=== PATIENT | female | born 1995 | race Caucasian/White ===

== ENCOUNTER 2020-10-07 07:46 | Inpatient (IN) | payer OTHER ==
[2020-10-07] MEDS ORDERED: RINGERS SOLUTION,LACTATED 1,000 ML IV PRN (09:12)
[2020-10-07 09:45] LABS: ABSOLUTE LYMPHOCYTES (AUTO) 1.4 10^3/uL (0.5-4.7); ABSOLUTE MONOCYTES (AUTO) 0.5 10^3/uL (0.1-1.4); ABSOLUTE NEUT (AUTO) 6.8 10^3/uL (1.7-8.2); BASOPHILS % (AUTO) 0.2 % (0-2); EOSINOPHILS % (AUTO) 0.4 % (0-6); HEMATOCRIT 36.5 % (36.0-47.0); HEMOGLOBIN 12.7 g/dL (12.0-15.5); LYMPHOCYTES % (AUTO) 15.6 % (13-45); MEAN CORPUSCULAR HEMOGLOBIN 34.1 pg (27.0-33.4); MEAN CORPUSCULAR HGB CONC 34.9 g/dL (32.0-36.0); MEAN CORPUSCULAR VOLUME 98 fl (80-97); MONOCYTES % (AUTO) 5.6 % (3-13); PLATELET COUNT 169 10^3/uL (150-450); RED BLOOD COUNT 3.73 10^6/uL (3.72-5.28); RED CELL DISTRIBUTION WIDTH 12.8 % (11.5-14.0); SEGMENTED NEUTROPHILS % (AUTO) 78.2 % (42-78); TOTAL CELLS COUNTED % (AUTO) 100 %; WHITE BLOOD COUNT 8.8 10^3/uL (4.0-10.5)
--- NOTE | 2020-10-07 11:50 | Admission Physical ---
Datetime Report Generated by CPN: 10/07/2020 11:49 CURRENT ADMISSION Hx Assessment: The History has been Reviewed and is Current Chief Complaint: Uterine Contractions; Suspected Ruptured Membranes Chief Complaint Other: Reports SROM this am of clear fluid. Contractions started on way to hospital but not too strong yet Admit Impression : Term, Intrauterine ; Active Labor; Ruptured Membranes Admit Plan: Admit to Unit; Initiate Labor Protocol; Initiate Labor Augmentation Protocol ALLERGIES Medication Allergies: No Medication Allergies: No Known Allergies (10/07/2020) Latex: No Latex Allergies OBSTETRICAL HISTORY EDC: 10/20/2020 00:00 : 1 Para: 0 Term: 0 : 0 SAB: 0 IAB: 0 Ectopic: 0 Livin Cesareans: 0 VBACs: 0 Multiple Births: 0 Gestational Diabetes: No Rh Sensitization: No Incompetent Cervix: No ARMANI: No Infertility: No ART Treatment: No Uterine Anomaly: No IUGR: No Hx Previous C/S: No Macrosomia: No Hx Loss/Stillborn: No PIH: No Hx : No Placenta Previa/Abruption: No Depression/PP Depression: No PTL/PROM: No Post Hemorrhage: No Obstetrical History Comments: G1- [place] G HTN SEE RECORDS Alcohol: No Marijuana : No Cocaine: No Other Illicit Drugs: No Cigarettes: Former Smoker. [id number] MEDICAL HISTORY Diabetes: No Blood Transfusion: No Pulmonary Disease (Asthma, TB): No Breast Disease: No Hypertension: No Embedded Systems Designer Surgery: No Heart Disease: No Hosp/Surgery: No Autoimmune Disorder: No Anesthetic Complications: No Kidney Disease: No Abnormal Pap Smear: No Neuro/Epilepsy: No Psychiatric Disorders: No Other Medical Diseases: No Hepatitis/Liver Disease: No Significant Family History: No Varicosities/Phlebitis: No Trauma/Violence : No Thyroid Dysfunction: No Medical History Comments: [place] teeth removed 2019 INFECTIOUS HISTORY Gonorrhea: No Genital Herpes: No Chlamydia: No Tuberculosis: No Syphilis: No Hepatitis: No HIV/AIDS Exposure: No Rash or Viral Illness: No HPV: No PHYSICAL EXAM General: Normal HEENT: Normal Neurologic: Normal Thyroid: Normal Heart: Normal Lungs: Normal Breast: Normal Back: Normal Abdomen: Normal Genitourinary Exam: Normal Extremities: Normal DTRs: Normal Pelvic Type: Adequate Vital Signs: Reviewed VAGINAL EXAM Dilatation: 1 Effacement: 75 Station: -3 Contraction Comments: Irregular Q 2-6 hours. MEMBRANES Pooling: Positive Membranes: Ruptured Amniotic Fluid Color: Clear FETUS A EGA: 38.1 Monitoring: External US FHR- Baseline: 130 Variability: Moderate 6-25bpm Accelerations: 15X15 Decelerations: None FHR Category: Category I Presentation: Vertex Admit Comment: 25 yo G1 at 38.1 wks EGA with SROM -active labor_ -Admit to LDR -NPO and IVFs: LR at 125 cc/hr after 1 liter of LR -CEFM and toco -GBS negative -IF contractions begin to space out, will begin pitocin low dose protocol at 2 milliunits and hour and increase by 2 every 30 minutes -anticipate PLANS FOR LABOR AND DELIVERY Labor and Delivery: None Pain Management: Epidural Feeding Preference: Breast Benefit of Breast Feed Discussed: Yes Circumcision: N/A INFORMED CONSENT Informed Consent Obtained: Vaginal Delivery; Section Delivery; Vacuum/Forceps Assist; Risks, Benefits and Alternatives Discussed Signature: with User ID: Fara : with User ID: Fara
[2020-10-07] MEDS ORDERED: OXYTOCIN/0.9 % SODIUM CHLORIDE 30 UNIT/500 ML RTUINJ IV PRN (13:40)
[2020-10-07 13:50] LABS: APPEARANCE,URINE CLEAR; BILIRUBIN,URINE NEGATIVE (NEGATIVE); COLOR,URINE STRAW; GLUCOSE, URINE NEGATIVE (NEGATIVE); KETONES,URINE NEGATIVE (NEGATIVE); LEUKOCYTE ESTERASE,URINE NEGATIVE (NEGATIVE); NITRITE,URINE NEGATIVE (NEGATIVE); PROTEIN,URINE NEGATIVE (NEGATIVE); URINE SPECIFIC GRAVITY 1.004; UROBILINOGEN,URINE NEGATIVE mg/dL (<2.0)
[2020-10-07] MEDS ORDERED: OXYTOCIN 10 UNIT/ML VIAL ONE (13:50)
[2020-10-07] MEDS ORDERED: MISOPROSTOL 0.2 MG TABLET ONE (13:50)
[2020-10-07] MEDS ORDERED: LIDOCAINE 1% INJ-PF (10 MG/ML) 30 ML SDV ONE (13:51)
[2020-10-07] MEDS ORDERED: OXYTOCIN/0.9 % SODIUM CHLORIDE 30 UNIT/500 ML RTUINJ ONE (13:51)
[2020-10-07 14:26] LABS: URINE AMPHETAMINES SCREEN NEGATIVE; URINE BARBITURATES SCREEN NEGATIVE; URINE BENZODIAZEPINES SCREEN NEGATIVE; URINE COCAINE SCREEN NEGATIVE; URINE MARIJUANA (THC) SCREEN NEGATIVE; URINE METHADONE SCREEN NEGATIVE; URINE PHENCYCLIDINE SCREEN NEGATIVE
[2020-10-07] MEDS ORDERED: PROMETHAZINE HCL INJ 25 MG/1 ML VIAL ONE (18:08)
[2020-10-07] MEDS ORDERED: NALBUPHINE HCL INJ 10 MG/1 ML AMPULE ONE (18:08)
[2020-10-07] MEDS ORDERED: PROMETHAZINE HCL INJ 25 MG/1 ML VIAL IV ONE (18:30)
[2020-10-07] MEDS ORDERED: NALBUPHINE HCL INJ 10 MG/1 ML AMPULE INJ ONE (18:30)
--- NOTE | 2020-10-07 19:21 | Warning Signs in Babies ---
VOD Warning Signs Datetime Report Generated by [facility]: 10/07/2020 19:21 VOD#608 -Warning Signs in Babies: Viewed with Parent(s)/Family (10/07/2020 07:47:Tomas Mars RN)
--- NOTE | 2020-10-07 19:22 | Warning Signs in Babies ---
VOD Warning Signs Datetime Report Generated by CPN: 10/07/2020 19:22 VOD#608 -Warning Signs in Babies: Viewed with Parent(s)/Family (10/07/2020 19:21:Tomas Mars RN)
[2020-10-07] MEDS ORDERED: EPHEDRINE SULFATE INJ 50 MG/1 ML AMPULE ONE (21:19)
[2020-10-07] MEDS ORDERED: FENTANYL/BUPIVACAINE/NS/PF 300 MCG/150 ML RTUINJ EPI ONE (21:20)
[2020-10-07] MEDS ORDERED: ROPIVACAINE HCL 0.2% INJ/PF (2 MG/ML) 20 ML SDV ONE (21:20)
[2020-10-08] MEDS ORDERED: GENTAMICIN SULFATE INJ 80 MG/2 ML VIAL IV SCH ×2 (00:30→11:00)
[2020-10-08] MEDS ORDERED: AMPICILLIN SOD INJ 2 GM VIAL ONE ×3 (01:11→12:20)
[2020-10-08] MEDS: AMPICILLIN SOD INJ 2 GM VIAL IV SCH ×3 (01:17→12:29)
[2020-10-08] MEDS ORDERED: PSEUDOEPHEDRINE HCL 30 MG TABLET PO PRN (01:37)
[2020-10-08] MEDS ORDERED: MAGNESIUM HYDROXIDE SUSP 30 ML UDCUP PO PRN (01:37)
[2020-10-08] MEDS ORDERED: ACETAMINOPHEN 650 MG SUPP.RECT PR PRN (01:37)
[2020-10-08] MEDS ORDERED: ZOLPIDEM TARTRATE 5 MG TABLET PO PRN (01:37)
[2020-10-08] MEDS ORDERED: PROMETHAZINE HCL 25 MG SUPP.RECT PR PRN (01:37)
[2020-10-08] MEDS ORDERED: ACETAMINOPHEN 325 MG TABLET PO PRN (01:37)
[2020-10-08] MEDS ORDERED: PROMETHAZINE HCL INJ 25 MG/1 ML VIAL IV PRN (01:37)
[2020-10-08] MEDS ORDERED: DIPHENHYDRAMINE HCL 25 MG CAPSULE PO PRN (01:37)
[2020-10-08] MEDS ORDERED: DIBUCAINE 1% OINTMENT 28 GM TP PRN (01:37)
[2020-10-08] MEDS ORDERED: ACETAMINOPHEN WITH CODEINE #3 TABLET PO PRN ×2 (01:37)
[2020-10-08] MEDS ORDERED: DIPH/PERTUSS(ACELL)/TETANUS VAC/PF 0.5 ML SYR (>=10YO) IM PRN (01:37)
[2020-10-08] MEDS ORDERED: OXYTOCIN/0.9 % SODIUM CHLORIDE 30 UNIT/500 ML RTUINJ IV PRN (01:37)
[2020-10-08] MEDS ORDERED: GLYCERIN/WITCH HAZEL LEAF 1 EACH MED..WIPE TP PRN (01:37)
[2020-10-08] MEDS ORDERED: MEASLES,MUMPS&RUBELLA VACC/PF 0.5 ML VIAL SUBCUT PRN (01:37)
[2020-10-08] MEDS ORDERED: BENZOCAINE/MENTHOL AEROSOL SPRAY 56 ML TOP PRN (01:37)
[2020-10-08] MEDS ORDERED: NA PHOS,M-B/NA PHOS,DI-BA (ADULT) 133 ML ENEMA PR PRN (01:37)
[2020-10-08] MEDS ORDERED: PROMETHAZINE HCL 25 MG TABLET PO PRN (01:37)
[2020-10-08] MEDS ORDERED: GENTAMICIN SULFATE INJ 80 MG/2 ML VIAL ONE ×2 (01:57→13:30)
[2020-10-08] MEDS ORDERED: IBUPROFEN 800 MG TABLET ONE (03:25)
[2020-10-08] MEDS: IBUPROFEN 800 MG TABLET PO SCH ×4 (03:26→22:37)
--- NOTE | 2020-10-08 04:29 | Delivery Summary ---
Del Sum A-C Datetime Report Generated by CPN: 10/08/2020 04:28 DELIVERY PERSONNEL DELIVERY PERSONNEL: [id number] Delivery Doctor:: Rachel Donato MD HOT REPAIRMAN:: Bang Uriel, HOT REPAIRMAN Labor and Delivery Nurse:: Tomas Mars RN Nursery Nurse:: Liana Bay RN Nursery Nurse:: JASON Archer Casting Machine Service Operator/PATIENT ACCESS COORDINATOR: Shireen Navarrete, CONSULTING DATABASE ADMINISTRATOR MATERNAL INFORMATION Delivery Anesthesia: Epidural Medications After Delivery: Pitocin 30 Units in 500ml NS/D5W Delivery QBL: 100 Maternal Complications: None Provider Comments: Called to patients room as she was complete and +3 after pushing for about one hour. Delivered viable female infant. After the head, the shoulders and rest of the body followed easily. Baby was vigorous so cord clamping delayed for 30 seconds. Afterwards, cord cut and clamped . placed skin to skin with Mother. Both stable. Left hand noted to have 3 fingers and thumb with left little finger dangling by small band of skin. It feels like there is bone within the little finger. LABOR SUMMARY EDC: 10/20/2020 00:00 No. Babies in Womb: 1 Attempted: No Labor Anesthesia: Epidural LABOR INFORMATION Reason for Induction: Not Applicable Onset of Labor: 10/07/2020 06:20 Complete Dilatation: 10/08/2020 00:03 Oxytocin: Augmentation Group B Beta Strep: negative Antibiotics # of Doses: 0 Name of Antibiotic Given: N/A Steroids Given: None Reason Steroids Not Administered: Not Applicable MEMBRANES Membranes Rupture Method: Spontaneous Rupture of Membranes: 10/07/2020 06:20 Length of Rupture (hr): 18.93 Amniotic Fluid Color: Clear Amniotic Fluid Amount: Small Amniotic Fluid Odor: Normal STAGES OF LABOR Stage 1 hr: 17 Stage 1 min: 43 Stage 2 hr: 1 Stage 2 min: 13 Stage 3 hr: 0 Stage 3 min: 13 Total Time in Labor hr: 19 Total Time in Labor min: 9 VAGINAL DELIVERY Episiotomy: None Laceration #1: Perineal Laceration Extension #1: Second Degree Laceration Repair: Yes Laceration Repair Note: Repaired with 2-0 chromic in a layered fashion Sponge Count Correct: Yes Sharps Count Correct: Yes CSECTION DELIVERY Primary Indication: N/A Secondary Indication: N/A CSection Incidence: N/A Labor: N/A Elective: N/A CSection Incision: N/A BABY A INFORMATION Infant Delivery Date/Time: 10/08/2020 01:16 Method of Delivery: Vaginal Nurse Controlled Delivery: No Born in Route : No : N/A Forceps: N/A Vacuum Extraction: N/A Shoulder Dystocia : Yes PRESENTATION/POSITION BABY A Presentation: Cephalic Cephalic Presentation: Vertex Vertex Position: Left Occipital Anterior Breech Presentation: N/A PLACENTA INFORMATION BABY A Placenta Delivery Time : 10/08/2020 01:29 Placenta Method of Delivery: Spontaneous Placenta Status: Delivered SCORES BABY A Heart Rate 1 min: >100 bpm Resp Effort 1 min: Good Cry Reflex Irritability 1 min: Cough or Sneeze or Pulls Away Muscle Tone 1 min: Active Motion Color 1 min: Body [place], Extremities Blue Resuscitation Effort 1 min: Tactile Stimulation SCORE 1 MIN: 9 Heart Rate 5 min: >100 bpm Resp Effort 5 min: Good Cry Reflex Irritability 5 min: Cough or Sneeze or Pulls Away Muscle Tone 5 min: Active Motion Color 5 min: Body [place], Extremities Blue SCORE 5 MIN: 9 INFANT INFORMATION BABY A Gestational Age at Delivery: 38.2 Gestational Status: Early Term- 37- 38.6 Weeks Outcome : Liveborn Infant Condition : Stable Infant Sex: Female IDENTIFICATION BABY A Infant Verification Date/Time: 10/08/2020 02:02 ID Band Number: [id number] Mother's Name Verified: Yes Infant RN Verifying : rn orlinann Additional Verifying Personnel: rn lonnie WEIGHT/LENGTH BABY A Birthweight (gm): 3660 Weight (lb): 8 Weight (oz): 1 Length (in): 20.50 Length (cm): 52.07 CORD INFORMATION BABY A No. Cord Vessels: 3 Nuchal Cord : N/A Cord Blood Taken: Yes-For Eval (Mom's Blood Type - or O+) Infant Suction: Mouth ASSESSMENT BABY A Infant Complications: None Physical Findings at Delivery: Missing Digit(s) Physical Findings- Other: left little finger is only attached by a small strip of skin. It feels like it has bone inside the actual digit. Respirations: Appears Normal Skin to Skin: Yes Middle [employer] Spanish Teacher/ALS Called : No Transferred To: Remains with Mother BABY B INFORMATION : N/A SIGNATURES Signature: with User ID: Fara : with User ID: Fara
--- NOTE | 2020-10-08 04:29 | Birth Certificate Data ---
Cert Data Datetime Report Generated by CPN: 10/08/2020 04:28 CERTIFICATE DATA Delivery Provider: Rachel Donato MD (10/07/2020 07:47:Rachel Donato MD) 47a. Care: Yes (10/07/2020 07:47:Lizett Dockery RN) 48a. Number of Prev Live Births: 0 (10/07/2020 07:47:Lizett Dockery RN) 48b. Now Livin (10/07/2020 07:47:Lizett Dockery RN) 48c. Live Births Now : 0 (10/07/2020 07:47:QS system process) 48e. Losses: 0 (10/07/2020 07:47:Lizett Dockery RN) RISK FACTORS IN THIS 49a. Diabetes: No (10/07/2020 07:47:Lizett Dockery RN) 49b. Hypertension: Yes (10/07/2020 07:47:Shruti Goldstein RN) Type of Hypertension: Gestational (PIH, Pre-eclampsia) (10/07/2020 07:47:Shruti Goldstein RN) 49c. Previous Births: 0 (10/07/2020 07:47:Shruti Goldstein RN) 49d. Stillborns: No (10/07/2020 07:47:Lizett Dockery RN) 49d. IUGR: No (10/07/2020 07:47:Lizett Dockery RN) 49e. Infertility Treatment: No (10/07/2020 07:47:Lizett Dockery RN) 49f. Previous Cesareans: 0 (10/07/2020 07:47:Shruti Goldstein RN) Mother's Height 50b. Height Inches: 71 (10/08/2020 03:46:QS system process) Mother's Weight 51b. Weight at Delivery (lbs): 211 (10/08/2020 03:46:QS system process) Infections Present/Treated 53a. Gonorrhea: No (10/07/2020 07:47:Lizett Dockery RN) Results this Hospital Visit : Negative (10/07/2020 07:47:Shruti Goldstein RN) 53b. Syphilis: No (10/07/2020 07:47:Lizett Dockery RN) 53c. Chlamydia: No (10/07/2020 07:47:Lizett Dockery RN) Results this Hospital Visit: Negative (10/07/2020 07:47:Shruti Goldstein RN) 53d. Hepatitis B: No (10/07/2020 07:47:Lizett Dockery RN) Results this Hospital Visit: Negative (10/07/2020 07:47:Lizett Dockery RN) 53e. Hepatitis C: Negative (10/07/2020 07:47:Shruti Goldstein RN) 53h. Mother Tested for HBsAG: Yes (10/07/2020 07:47:Shruti Goldstein RN) 53i. Date Tested: 04/06/2020 00:00 (10/07/2020 07:47:Shruti Goldstein RN) 53j. Test Result: Negative (10/07/2020 07:47:Lizett Dockery RN) Obstetric Procedures 54a, b, c. Obstetric Procedures: Ultrasound (10/07/2020 07:47:Shruti Goldstein, RN) Cigarette Smoking Cigarette Smoking: Former Smoker. [id number] (10/07/2020 07:47:Lizett Sales, RN) Onset of Labor 56a. PROM >12 Hrs: 18.93 (10/07/2020 09:30:QS system process) 56b. Precipitous Labor <3 Hrs: 19 (10/07/2020 09:30:QS system process) 56c. Prolonged Labor > 20 Hrs: 19 (10/07/2020 09:30:QS system process) 57a. Induction of Labor: Augmentation (10/07/2020 07:47:July Morales RN) 57c. Non-Vertex Presentation A: Vertex (10/07/2020 07:47:Rachel Donato MD) 57d. Steroids - Lung Mat: None (10/07/2020 07:47:July Morales RN) 57d. Steroids - Lung Mat: Not Applicable (10/07/2020 07:47:July Morales RN) 57g. Moderate/Heavy Meconium: Clear (10/07/2020 09:30:Shruti Goldstein RN) 57h. Intolerance of Labor: N/A (10/07/2020 07:47:Rachel Donato MD) : N/A (10/07/2020 07:47:July Morales RN) 57i. Epidural/Spinal Anesthesia: Epidural (10/07/2020 07:47:July Morales RN) Method of Delivery 58a. Forceps - Unsuccessful A: N/A (10/07/2020 07:47:July Morales RN) 58b. Vacuum - Unsuccessful A: N/A (10/07/2020 07:47:July Morales RN) 58c. Presentation at 58c. Presentation at - A : Vertex (10/07/2020 07:47:Rachel Donato MD) 58c. Presentation at - A : N/A (10/07/2020 07:47:July Morales RN) 58c. Presentation at - A : Cephalic (10/07/2020 17:33:Shruti Goldstein RN) Final Route and Method of Del 58d. Baby A Route/Delivery: Vaginal (10/08/2020 01:16:Tomas Mars RN) 58e. Trial of Labor Attempted: No (10/07/2020 07:47:July Morales RN) 58e. Trial of Labor Attempted A: N/A (10/07/2020 07:47:July Morales RN) 58e. Trial of Labor Attempted B: N/A (10/07/2020 07:47:July Kossmann, RN) Maternal Morbidity 59b. 3rd or 4th Degree Lacs: Perineal (10/07/2020 07:47:Rachel Donato, MD) Birthweight Baby A: 3660 (10/07/2020 07:47:Tomas Mars RN) 60a. Pounds : 8 (10/07/2020 07:47:QS system process) 60b. Ounces: 1 (10/07/2020 07:47:QS system process) 61. GA at Delivery Baby A: 38.2 (10/07/2020 07:47:July Morales RN) : Early Term- 37- 38.6 Weeks (10/07/2020 07:47:QS system process) 62a. 5 Minute Baby A: 9 (10/07/2020 07:47:QS system process)
--- NOTE | 2020-10-08 10:51 | PDOC PROGRESS REPORT ---
Subjective-OB Progress Note for:: 10/08/20 - Delivery Day, doing well, UOB, voiding, O+, , denies fever, chills, malaise Physical Exam (OB) Vital Signs: Temp Pulse Resp BP Pulse Ox 98 F 96 20 123/70 99 10/08/20 04:01 10/08/20 04:01 10/08/20 04:01 10/08/20 04:01 10/08/20 04:01 Intake & Output 10/07/20 10/08/20 10/09/20 06:59 06:59 06:59 Weight 95.5 kg - General General Appearance: Appears well In distress: None - Maternal Morbidity 59. Maternal Morbidity (serious complications experinced by the mother associated with labor and delivery: None of the above - Abdomen Fundal Description: Firm Fundal Height: u/u - u/2 - Respiratory Respiratory Status: No respiratory distress - Abdominal Distension: No distension - Genitourinary Genitourinary Note: voiding - Neurological Cognition: Normal Orientation: AAOx4 - Skin Skin Temperature: Warm Skin Moisture: Dry Objective-Diagnostic Laboratory: 10/07/20 09:30 10/07/20 07:54 Urine Color STRAW Urine Appearance CLEAR Urine pH 7.0 Ur Specific [place] 1.004 Urine Protein NEGATIVE Urine Glucose (UA) NEGATIVE Urine Ketones NEGATIVE Urine Blood NEGATIVE Urine Nitrite NEGATIVE Ur Leukocyte Esterase NEGATIVE Assessment and Plan(PN) - Assessment and Plan (1) (normal spontaneous vaginal delivery) Is this a current diagnosis for this admission?: Yes (2) Chorioamnionitis, delivered, current hospitalization Is this a current diagnosis for this admission?: Yes Plan:: Continue antibiotics x 24 hours, ambulation encouraged - Time Spent with Patient Time with patient: Less than 15 minutes Medications reviewed and adjusted accordingly: Yes - Disposition Anticipated Discharge Disposition: Home, Self Care Anticipated Discharge Timeframe: within 48 hours
[2020-10-08] MEDS: FAMOTIDINE 20 MG TABLET PO SCH ×2 (11:22→22:37)
[2020-10-08] MEDS: FERROUS SULFATE 325 MG TABLET PO SCH ×2 (11:22→18:47)
[2020-10-08] MEDS: DOCUSATE SODIUM 100 MG CAPSULE PO SCH ×2 (11:22→18:47)
[2020-10-08] MEDS: SENNOSIDES/DOCUSATE 8.6-50 MG 1 EACH TABLET PO SCH (11:22)
[2020-10-08] MEDS: PRENATAL VITAMIN W DHA CAPSULE PO SCH (11:22)
[2020-10-08] MEDS: GENTAMICIN SULFATE 80 MG in DEXTROSE 5%-WATER 100 ML IV SCH ×2 (14:57→22:39)
[2020-10-08] MEDS: AMPICILLIN SODIUM 2 GM in NORMAL SALINE 100 ML IV SCH (18:50)
[2020-10-09] MEDS: AMPICILLIN SODIUM 2 GM in NORMAL SALINE 100 ML IV SCH (00:43)
[2020-10-09] MEDS: IBUPROFEN 800 MG TABLET PO SCH ×3 (05:59→21:22)
[2020-10-09 07:05] LABS: HEMATOCRIT 32.7 % (36.0-47.0); HEMOGLOBIN 11.2 g/dL (12.0-15.5); MEAN CORPUSCULAR HEMOGLOBIN 33.6 pg (27.0-33.4); MEAN CORPUSCULAR HGB CONC 34.1 g/dL (32.0-36.0); MEAN CORPUSCULAR VOLUME 99 fl (80-97); PLATELET COUNT 153 10^3/uL (150-450); RED BLOOD COUNT 3.32 10^6/uL (3.72-5.28); RED CELL DISTRIBUTION WIDTH 13.2 % (11.5-14.0); WHITE BLOOD COUNT 9.1 10^3/uL (4.0-10.5)
[2020-10-09] MEDS: PRENATAL VITAMIN W DHA CAPSULE PO SCH (09:43)
[2020-10-09] MEDS: FERROUS SULFATE 325 MG TABLET PO SCH ×2 (09:44→17:48)
[2020-10-09] MEDS: FAMOTIDINE 20 MG TABLET PO SCH ×2 (09:44→21:22)
[2020-10-09] MEDS: SENNOSIDES/DOCUSATE 8.6-50 MG 1 EACH TABLET PO SCH (09:44)
[2020-10-09] MEDS: DOCUSATE SODIUM 100 MG CAPSULE PO SCH ×2 (09:44→17:48)
--- NOTE | 2020-10-09 15:13 | PDOC PROGRESS REPORT ---
Subjective-OB Progress Note for:: 10/09/20 Subjective: reports bleeding slowing, pain controlled with current meds. denies needs Physical Exam (OB) Vital Signs: Temp Pulse Resp BP Pulse Ox 98.2 F 82 16 143/64 H 100 10/09/20 12:00 10/09/20 12:00 10/09/20 12:00 10/09/20 12:00 10/09/20 12:00 Intake & Output 10/08/20 10/09/20 10/10/20 06:59 06:59 06:59 Intake Total 100 400 Balance 100 400 Weight 95.5 kg - Maternal Morbidity 59. Maternal Morbidity (serious complications experinced by the mother associated with labor and delivery: None of the above - Abdomen Description: Soft Hernia Present: No Fundal Description: Firm, Midline Fundal Height: u/u - u/2 - Abdominal Distension: No distension Tenderness: Nontender - Extremities Lower extremities: Debi's sign - neg Calf: Normal, Nontender Objective-Diagnostic Laboratory: 10/09/20 06:51 10/09/20 06:51 WBC 9.1 RBC 3.32 L Hgb 11.2 L Hct 32.7 L MCV 99 H MCH 33.6 H MCHC 34.1 RDW 13.2 Plt Count 153 Assessment and Plan(PN) - Time Spent with Patient Time with patient: Less than 15 minutes - Disposition Anticipated Discharge Disposition: Home, Self Care Anticipated Discharge Timeframe: within 24 hours
[2020-10-10] MEDS: IBUPROFEN 800 MG TABLET PO SCH (05:11)
[2020-10-10] MEDS: FAMOTIDINE 20 MG TABLET PO SCH (09:48)
[2020-10-10] MEDS: SENNOSIDES/DOCUSATE 8.6-50 MG 1 EACH TABLET PO SCH (09:48)
[2020-10-10] MEDS: DOCUSATE SODIUM 100 MG CAPSULE PO SCH (09:48)
[2020-10-10] MEDS: PRENATAL VITAMIN W DHA CAPSULE PO SCH (09:48)
[2020-10-10] MEDS: FERROUS SULFATE 325 MG TABLET PO SCH (09:48)
--- NOTE | 2020-10-10 11:31 | PDOC DISCHARGE SUMMARY ---
Impression - Admit/DC Date/PCP Admission Date/Primary Care Provider: 10/07/20 08:54 Discharge Date: 10/10/20 - PP Day #2, doing well, denies fever, chills, malaise, s/p ABX for Chorio in labor. Fever precautions reviewed, O+ Rubella Immune, , - Discharge Diagnosis (1) (normal spontaneous vaginal delivery) Is this a current diagnosis for this admission?: Yes (2) Chorioamnionitis, delivered, current hospitalization Is this a current diagnosis for this admission?: Yes (3) Normal course Is this a current diagnosis for this admission?: Yes - Additional Information Resuscitation Status: Full Code Discharge Diet: Regular Discharge Activity: Balance Activity w/Rest, No tub bath Referrals: [facility] [Provider Group] Prescriptions: Ibuprofen [Motrin 800 mg Tablet] 800 mg PO Q8 #60 tablet Home Medications: Pnv 102/Iron/Folate 1/Dss/Dha [Vitafol Fe+ Docusate Combo Pck] 1 each PO DAILY 10/07/20 Ibuprofen [Motrin 800 mg Tablet] 800 mg PO Q8 #60 tablet 10/10/20 HPI Reason(s) for Admission: Onset of Labor Procedures: Management of Obstetric Complications Intrapartum Procedure(s): Spontaneous Vaginal Delivery Complication(s): Laceration-Vaginal, Pelvic Infection, Antibiotics Laceration-Degree: 2nd Hospital Course 59. Maternal Morbidity (serious complications experinced by the mother associated with labor and delivery: None of the above Results Laboratory Results: WBC 9.1 10^3/uL (4.0-10.5) 10/09/20 06:51 RBC 3.32 10^6/uL (3.72-5.28) L 10/09/20 06:51 Hgb 11.2 g/dL (12.0-15.5) L 10/09/20 06:51 Hct 32.7 % (36.0-47.0) L 10/09/20 06:51 MCV 99 fl (80-97) H 10/09/20 06:51 MCH 33.6 pg (27.0-33.4) H 10/09/20 06:51 MCHC 34.1 g/dL (32.0-36.0) 10/09/20 06:51 RDW 13.2 % (11.5-14.0) 10/09/20 06:51 Plt Count 153 10^3/uL (150-450) 10/09/20 06:51 Lymph % (Auto) 15.6 % (13-45) 10/07/20 09:30 [place] % (Auto) 5.6 % (3-13) 10/07/20 09:30 Eos % (Auto) 0.4 % (0-6) 10/07/20 09:30 Baso % (Auto) 0.2 % (0-2) 10/07/20 09:30 Absolute Neuts (auto) 6.8 10^3/uL (1.7-8.2) 10/07/20 09:30 Absolute Lymphs (auto) 1.4 10^3/uL (0.5-4.7) 10/07/20 09:30 Absolute Monos (auto) 0.5 10^3/uL (0.1-1.4) 10/07/20 09:30 Absolute Eos (auto) 0.0 10^3/uL (0.0-0.6) 10/07/20 09:30 Absolute Basos (auto) 0.0 10^3/uL (0.0-0.2) 10/07/20 09:30 Seg Neutrophils % 78.2 % (42-78) H 10/07/20 09:30 Urine Color STRAW 10/07/20 07:54 Urine Appearance CLEAR 10/07/20 07:54 Urine pH 7.0 (5.0-9.0) 10/07/20 07:54 Ur Specific [place] 1.004 10/07/20 07:54 Urine Protein NEGATIVE mg/dL (NEGATIVE) 10/07/20 07:54 Urine Glucose (UA) NEGATIVE mg/dL (NEGATIVE) 10/07/20 07:54 Urine Ketones NEGATIVE mg/dL (NEGATIVE) 10/07/20 07:54 Urine Blood NEGATIVE (NEGATIVE) 10/07/20 07:54 Urine Nitrite NEGATIVE (NEGATIVE) 10/07/20 07:54 Urine Bilirubin NEGATIVE (NEGATIVE) 10/07/20 07:54 Urine Urobilinogen NEGATIVE mg/dL (<2.0) 10/07/20 07:54 Ur Leukocyte Esterase NEGATIVE (NEGATIVE) 10/07/20 07:54 Urine Ascorbic Acid NEGATIVE (NEGATIVE) 10/07/20 07:54 Membranes Rupture POSITIVE (NEGATIVE) H 10/07/20 07:52 Urine Opiates Screen NEGATIVE 10/07/20 07:54 Urine Methadone Screen NEGATIVE 10/07/20 07:54 Ur Barbiturates Screen NEGATIVE 10/07/20 07:54 Ur Phencyclidine Scrn NEGATIVE 10/07/20 07:54 Ur Amphetamines Screen NEGATIVE 10/07/20 07:54 U Benzodiazepines Scrn NEGATIVE 10/07/20 07:54 Urine Cocaine Screen NEGATIVE 10/07/20 07:54 U Marijuana (THC) Screen NEGATIVE 10/07/20 07:54 RPR NONREACTIVE (NONREACTIVE) 10/07/20 09:30 Blood Type O POSITIVE 10/07/20 09:30 Antibody Screen NEGATIVE 10/07/20 09:30 Plan Plan of Treatment: d/c home, d/up with [facility] in 4 wks for PP check. Fever precautions reviewed Time Spent: Less than 30 Minutes
[2020-10-10 11:56] VITALS: BP 120/75
== END 2020-10-10 12:20 | disposition home or self-care (01) | DRG 805 ==
LOC: LC 07:46 → LR 08:54 → 2S 10-08 03:46
PROVIDERS: ADMIT Obstetrics & Gynecology; ATTEND Obstetrics & Gynecology
PROC: 10E0XZZ Delivery of Products of Conception, External Approach (ICD-10-PCS; principal; 2020-10-08)
PROC: 0KQM0ZZ Repair Perineum Muscle, Open Approach (ICD-10-PCS; 2020-10-08)
DX: O13.4 Gestational [pregnancy-induced] hypertension without significant proteinuria, complicating childbirth (principal); O41.1230 Chorioamnionitis, third trimester, not applicable or unspecified; Z37.0 Single live birth; O70.1 Second degree perineal laceration during delivery; Z87.891 Personal history of nicotine dependence; Z3A.38 38 weeks gestation of pregnancy
CPT/HCPCS: 1967; 36415; 80307; 81005; 84112; 85025; 85027; 86592; 86850; 86900; 86901; 94760; J0290; J1580; J2300; J2550; J2590; J2795; J3010; J3490; J7050; J7060